=== PATIENT | female | born 1940 | race African-American/Black ===

== ENCOUNTER 2020-04-15 16:36 | Inpatient (IN) ==
[2020-04-17] MEDS ORDERED: Artificial Tears SOLN 15 ML BOTTLE OP PRN (17:10)
[2020-04-17] MEDS ORDERED: Bisacodyl 10 MG RECTAL SUPPOSITORY RC PRN (17:23)
[2020-04-17] MEDS ORDERED: MOM Conc 10 ML UD.LIQ PO PRN (17:24)
[2020-04-17] MEDS: *HR* OxyCODONE/APAP 5/325 TABLET PO SCH (20:39)
[2020-04-17] MEDS: Sennosides 8.6 MG TABLET PO SCH (20:40)
[2020-04-17] MEDS: SODIUM CHLORIDE OP SCH (21:11)
[2020-04-18] MEDS: *HR* OxyCODONE/APAP 5/325 TABLET PO SCH ×5 (03:03→16:23)
[2020-04-18 04:50] LABS: Basophils % 0.3 %; Eosinophils # 0.2 K/mcL (0.0-0.6); Eosinophils % 1.8 %; Hematocrit 23.9 % (35.3-44.9); Hemoglobin 7.7 g/dL (11.5-15.4); Immature Granulocytes % 1.1 % (0-4); Lymphocytes # 2.5 K/mcL (0.6-4.6); Lymphocytes % 25.7 %; Mean Corpuscular HGB Conc 32.2 g/dL (31.6-35.5); Mean Corpuscular Hemoglobin 29.6 pg (28.0-33.3); Mean Corpuscular Volume 91.9 fL (83.0-100.0); Monocytes # 0.8 K/mcL (0.0-1.3); Monocytes % 7.8 %; Neutrophils # 6.1 K/mcL (1.6-8.9); Nucleated Red Blood Cells 0.2 /100 WBC (0); Platelet Count 233 K/mcL (140-400); Red Cell Distribution Width 14.1 % (11.5-14.5); Segmented Neutrophils % 63.3 %; White Blood Count 9.6 K/mcL (4.3-11.1)
[2020-04-18] MEDS: *HR* Enoxaparin 40 MG/0.4 ML SYRINGE SQ SCH (04:54)
[2020-04-18 05:05] LABS: BUN/Creatinine Ratio 27 (6-26); Blood Urea Nitrogen 20 mg/dL (8-23); Calcium 8.7 mg/dL (8.6-10.3); Carbon Dioxide 26 mEq/L (23-29); Chloride 104 mEq/L (98-107); Glucose 98 mg/dL (70-105); Osmolality,Calculated 289 (280-300); Potassium 4.2 mEq/L (3.5-5.1); Sodium 138 mEq/L (136-145); eGFR For African Americans > 60 (> 60); eGFR For Non-African Americans > 60 (> 60)
[2020-04-18] MEDS: Vitamin B Complex/Vit C/Vit E 1 EACH TABLET PO SCH (08:09)
[2020-04-18] MEDS: Zinc Sulfate 220 MG CAPSULE PO SCH (08:10)
[2020-04-18] MEDS: Cholecalciferol (D-3) 1,000 UNIT (25MCG) TABLET PO SCH (08:10)
[2020-04-18] MEDS: Loratadine 10 MG TABLET PO SCH (08:10)
[2020-04-18] MEDS: Sennosides 8.6 MG TABLET PO SCH ×2 (08:10→21:06)
[2020-04-18] MEDS: Aspirin 81 MG TAB.CHEW PO SCH (08:10)
[2020-04-18] MEDS: SODIUM CHLORIDE OP SCH (08:12)
[2020-04-18] MEDS: Patient Taking Own Medication 1 EACH TP SCH (08:12)
[2020-04-18] MEDS: polyethylene glycoL 3350 17 GM POWD.PACK PO SCH (08:12)
[2020-04-18] MEDS: Ondansetron ODT 4 MG TAB.RAPDIS SL PRN ×2 (12:01→21:06)
[2020-04-18] MEDS: 0.9 % Sodium Chloride 1,000 ML IVC SCH (13:24)
[2020-04-18] MEDS: *HR* OxyCODONE/APAP 5/325 TABLET PO PRN (21:07)
[2020-04-19] MEDS: 0.9 % Sodium Chloride 1,000 ML IVC SCH ×2 (01:02→11:37)
[2020-04-19] MEDS: *HR* Enoxaparin 40 MG/0.4 ML SYRINGE SQ SCH (06:20)
[2020-04-19] MEDS: *HR* OxyCODONE/APAP 5/325 TABLET PO PRN ×2 (06:21→12:53)
[2020-04-19] MEDS: Ondansetron ODT 4 MG TAB.RAPDIS SL PRN ×2 (06:21→13:32)
[2020-04-19] MEDS: Sennosides 8.6 MG TABLET PO SCH ×2 (10:28→19:58)
[2020-04-19 11:09] LABS: Basophils # 0.1 K/mcL (0.0-0.2); Basophils % 0.5 %; Eosinophils # 0.3 K/mcL (0.0-0.6); Eosinophils % 3.1 %; Hematocrit 25.6 % (35.3-44.9); Hemoglobin 8.1 g/dL (11.5-15.4); Immature Granulocytes % 3.3 % (0-4); Lymphocytes # 4.3 K/mcL (0.6-4.6); Lymphocytes % 40.3 %; Mean Corpuscular HGB Conc 31.6 g/dL (31.6-35.5); Mean Corpuscular Hemoglobin 29.2 pg (28.0-33.3); Mean Corpuscular Volume 92.4 fL (83.0-100.0); Mean Platelet Volume 9.2 fL (9.4-12.4); Monocytes # 0.8 K/mcL (0.0-1.3); Monocytes % 7.6 %; Neutrophils # 4.8 K/mcL (1.6-8.9); Nucleated Red Blood Cells 0.3 /100 WBC (0); Platelet Count 295 K/mcL (140-400); Red Blood Count 2.77 M/mcL (3.82-4.97); Red Cell Distribution Width 13.9 % (11.5-14.5); Segmented Neutrophils % 45.2 %; White Blood Count 10.6 K/mcL (4.3-11.1)
[2020-04-19 11:25] LABS: BUN/Creatinine Ratio 20 (6-26); Blood Urea Nitrogen 13 mg/dL (8-23); Calcium 8.6 mg/dL (8.6-10.3); Carbon Dioxide 23 mEq/L (23-29); Chloride 105 mEq/L (98-107); Glucose 82 mg/dL (70-105); Osmolality,Calculated 285 (280-300); Potassium 4.1 mEq/L (3.5-5.1); Sodium 138 mEq/L (136-145); eGFR For African Americans > 60 (> 60); eGFR For Non-African Americans > 60 (> 60)
[2020-04-19] MEDS: Loratadine 10 MG TABLET PO SCH (11:34)
[2020-04-19] MEDS: Zinc Sulfate 220 MG CAPSULE PO SCH (11:35)
[2020-04-19] MEDS: Vitamin B Complex/Vit C/Vit E 1 EACH TABLET PO SCH (11:35)
[2020-04-19] MEDS: Cholecalciferol (D-3) 1,000 UNIT (25MCG) TABLET PO SCH (11:35)
[2020-04-19] MEDS: Aspirin 81 MG TAB.CHEW PO SCH (11:36)
[2020-04-19] MEDS: Patient Taking Own Medication 1 EACH TP SCH (11:36)
[2020-04-19] MEDS: polyethylene glycoL 3350 17 GM POWD.PACK PO SCH (11:36)
[2020-04-19] MEDS ORDERED: polyethylene glycoL 3350 17 GM POWD.PACK PO PRN (13:09)
[2020-04-20] MEDS: *HR* OxyCODONE/APAP 5/325 TABLET PO PRN ×2 (01:02→09:07)
[2020-04-20] MEDS: Ondansetron ODT 4 MG TAB.RAPDIS SL PRN ×3 (01:02→19:35)
[2020-04-20] MEDS: *HR* Enoxaparin 40 MG/0.4 ML SYRINGE SQ SCH (04:52)
[2020-04-20] MEDS: Sennosides 8.6 MG TABLET PO SCH ×2 (09:00→19:36)
[2020-04-20] MEDS: Vitamin B Complex/Vit C/Vit E 1 EACH TABLET PO SCH (09:00)
[2020-04-20] MEDS: Cholecalciferol (D-3) 1,000 UNIT (25MCG) TABLET PO SCH (09:00)
[2020-04-20] MEDS: Patient Taking Own Medication 1 EACH TP SCH (09:00)
[2020-04-20] MEDS: Loratadine 10 MG TABLET PO SCH (09:00)
[2020-04-20] MEDS: Zinc Sulfate 220 MG CAPSULE PO SCH (09:00)
[2020-04-20] MEDS: Aspirin 81 MG TAB.CHEW PO SCH (09:00)
[2020-04-20 15:46] LABS: Basophils % 0.2 %; Eosinophils # 0.2 K/mcL (0.0-0.6); Eosinophils % 2.7 %; Hematocrit 25.1 % (35.3-44.9); Hemoglobin 8.1 g/dL (11.5-15.4); Immature Granulocytes % 3.9 % (0-4); Lymphocytes # 3.3 K/mcL (0.6-4.6); Lymphocytes % 36.9 %; Mean Corpuscular HGB Conc 32.3 g/dL (31.6-35.5); Mean Corpuscular Hemoglobin 29.9 pg (28.0-33.3); Mean Corpuscular Volume 92.6 fL (83.0-100.0); Monocytes # 0.9 K/mcL (0.0-1.3); Monocytes % 9.6 %; Neutrophils # 4.2 K/mcL (1.6-8.9); Nucleated Red Blood Cells 0.8 /100 WBC (0); Platelet Count 309 K/mcL (140-400); Red Blood Count 2.71 M/mcL (3.82-4.97); Segmented Neutrophils % 46.7 %
[2020-04-20 16:00] LABS: BUN/Creatinine Ratio 23 (6-26); Blood Urea Nitrogen 19 mg/dL (8-23); Calcium 9.2 mg/dL (8.6-10.3); Carbon Dioxide 30 mEq/L (23-29); Chloride 103 mEq/L (98-107); Glucose 119 mg/dL (70-105); Magnesium 1.8 mg/dL (1.6-2.6); Osmolality,Calculated 291 (280-300); Potassium 4.2 mEq/L (3.5-5.1); Sodium 139 mEq/L (136-145); eGFR For African Americans > 60 (> 60); eGFR For Non-African Americans > 60 (> 60)
[2020-04-21] MEDS: *HR* Enoxaparin 40 MG/0.4 ML SYRINGE SQ SCH (05:31)
[2020-04-21] MEDS: Cholecalciferol (D-3) 1,000 UNIT (25MCG) TABLET PO SCH (09:29)
[2020-04-21] MEDS: Ondansetron ODT 4 MG TAB.RAPDIS SL PRN ×2 (09:29→17:07)
[2020-04-21] MEDS: Zinc Sulfate 220 MG CAPSULE PO SCH (09:29)
[2020-04-21] MEDS: Vitamin B Complex/Vit C/Vit E 1 EACH TABLET PO SCH (09:29)
[2020-04-21] MEDS: Loratadine 10 MG TABLET PO SCH (09:30)
[2020-04-21] MEDS: Aspirin 81 MG TAB.CHEW PO SCH (09:30)
[2020-04-21] MEDS: Patient Taking Own Medication 1 EACH TP SCH (09:30)
[2020-04-21] MEDS: Sennosides 8.6 MG TABLET PO SCH (09:30)
[2020-04-21 12:22] LABS: Basophils % 0.3 %; Eosinophils # 0.3 K/mcL (0.0-0.6); Eosinophils % 2.8 %; Hematocrit 27.9 % (35.3-44.9); Hemoglobin 8.9 g/dL (11.5-15.4); Immature Granulocytes % 2.9 % (0-4); Lymphocytes % 42.3 %; Mean Corpuscular HGB Conc 31.9 g/dL (31.6-35.5); Mean Corpuscular Hemoglobin 29.7 pg (28.0-33.3); Mean Platelet Volume 9.1 fL (9.4-12.4); Monocytes # 0.8 K/mcL (0.0-1.3); Monocytes % 8.1 %; Neutrophils # 4.1 K/mcL (1.6-8.9); Nucleated Red Blood Cells 0.3 /100 WBC (0); Platelet Count 365 K/mcL (140-400); Red Cell Distribution Width 14.4 % (11.5-14.5); Segmented Neutrophils % 43.6 %; White Blood Count 9.5 K/mcL (4.3-11.1)
[2020-04-21 12:36] LABS: BUN/Creatinine Ratio 18 (6-26); Blood Urea Nitrogen 14 mg/dL (8-23); Calcium 9.7 mg/dL (8.6-10.3); Carbon Dioxide 29 mEq/L (23-29); Chloride 99 mEq/L (98-107); Glucose 115 mg/dL (70-105); Osmolality,Calculated 285 (280-300); Potassium 4.1 mEq/L (3.5-5.1); Sodium 137 mEq/L (136-145); eGFR For African Americans > 60 (> 60); eGFR For Non-African Americans > 60 (> 60)
[2020-04-22] MEDS: *HR* Enoxaparin 40 MG/0.4 ML SYRINGE SQ SCH (05:48)
[2020-04-22] MEDS: Aspirin 81 MG TAB.CHEW PO SCH (08:17)
[2020-04-22] MEDS: Cholecalciferol (D-3) 1,000 UNIT (25MCG) TABLET PO SCH (08:17)
[2020-04-22] MEDS: Vitamin B Complex/Vit C/Vit E 1 EACH TABLET PO SCH (08:17)
[2020-04-22] MEDS: Loratadine 10 MG TABLET PO SCH (08:17)
[2020-04-22] MEDS: Zinc Sulfate 220 MG CAPSULE PO SCH (08:17)
[2020-04-22] MEDS: Patient Taking Own Medication 1 EACH TP SCH (08:18)
[2020-04-22] MEDS ORDERED: Menthol 9.1 MG LOZENGE PO PRN (14:35)
[2020-04-22] MEDS: Ondansetron ODT 4 MG TAB.RAPDIS SL PRN (20:30)
[2020-04-23] MEDS: *HR* Enoxaparin 40 MG/0.4 ML SYRINGE SQ SCH (05:13)
[2020-04-23] MEDS: Zinc Sulfate 220 MG CAPSULE PO SCH (09:19)
[2020-04-23] MEDS: Loratadine 10 MG TABLET PO SCH (09:19)
[2020-04-23] MEDS: Cholecalciferol (D-3) 1,000 UNIT (25MCG) TABLET PO SCH (09:19)
[2020-04-23] MEDS: Aspirin 81 MG TAB.CHEW PO SCH (09:19)
[2020-04-23] MEDS: Patient Taking Own Medication 1 EACH TP SCH (09:20)
[2020-04-23] MEDS: *HR* OxyCODONE/APAP 5/325 TABLET PO PRN ×2 (10:26→22:10)
[2020-04-24] MEDS: *HR* Enoxaparin 40 MG/0.4 ML SYRINGE SQ SCH (06:44)
[2020-04-24] MEDS: Patient Taking Own Medication 1 EACH TP SCH (08:27)
[2020-04-24] MEDS: Cholecalciferol (D-3) 1,000 UNIT (25MCG) TABLET PO SCH (08:27)
[2020-04-24] MEDS: Loratadine 10 MG TABLET PO SCH (08:27)
[2020-04-24] MEDS: Aspirin 81 MG TAB.CHEW PO SCH (08:27)
[2020-04-24] MEDS: Zinc Sulfate 220 MG CAPSULE PO SCH (08:30)
[2020-04-24] MEDS: *HR* OxyCODONE/APAP 5/325 TABLET PO PRN (22:04)
[2020-04-25 05:23] LABS: Basophils % 0.4 %; Eosinophils # 0.4 K/mcL (0.0-0.6); Eosinophils % 4.3 %; Hematocrit 28.6 % (35.3-44.9); Hemoglobin 8.8 g/dL (11.5-15.4); Immature Granulocytes % 1.3 % (0-4); Lymphocytes # 5.1 K/mcL (0.6-4.6); Lymphocytes % 49.3 %; Mean Corpuscular HGB Conc 30.8 g/dL (31.6-35.5); Mean Corpuscular Hemoglobin 29.2 pg (28.0-33.3); Mean Platelet Volume 8.8 fL (9.4-12.4); Monocytes # 0.9 K/mcL (0.0-1.3); Monocytes % 8.5 %; Neutrophils # 3.7 K/mcL (1.6-8.9); Platelet Count 416 K/mcL (140-400); Red Blood Count 3.01 M/mcL (3.82-4.97); Red Cell Distribution Width 14.6 % (11.5-14.5); Segmented Neutrophils % 36.2 %; White Blood Count 10.3 K/mcL (4.3-11.1)
[2020-04-25 05:38] LABS: BUN/Creatinine Ratio 20 (6-26); Blood Urea Nitrogen 16 mg/dL (8-23); Calcium 9.4 mg/dL (8.6-10.3); Carbon Dioxide 31 mEq/L (23-29); Chloride 101 mEq/L (98-107); Glucose 96 mg/dL (70-105); Osmolality,Calculated 289 (280-300); Potassium 4.3 mEq/L (3.5-5.1); Sodium 139 mEq/L (136-145); eGFR For African Americans > 60 (> 60); eGFR For Non-African Americans > 60 (> 60)
[2020-04-25] MEDS: *HR* Enoxaparin 40 MG/0.4 ML SYRINGE SQ SCH (06:47)
[2020-04-25] MEDS: Aspirin 81 MG TAB.CHEW PO SCH (08:26)
[2020-04-25] MEDS: Cholecalciferol (D-3) 1,000 UNIT (25MCG) TABLET PO SCH (08:27)
[2020-04-25] MEDS: Patient Taking Own Medication 1 EACH TP SCH (08:27)
[2020-04-25] MEDS: Zinc Sulfate 220 MG CAPSULE PO SCH (08:27)
[2020-04-25] MEDS: Loratadine 10 MG TABLET PO SCH (08:27)
[2020-04-25] MEDS ORDERED: tiZANidine 4 MG TABLET PO PRN (15:02)
[2020-04-26] MEDS: *HR* OxyCODONE/APAP 5/325 TABLET PO PRN (04:33)
[2020-04-26] MEDS: *HR* Enoxaparin 40 MG/0.4 ML SYRINGE SQ SCH (04:34)
[2020-04-26] MEDS: Loratadine 10 MG TABLET PO SCH (08:01)
[2020-04-26] MEDS: Aspirin 81 MG TAB.CHEW PO SCH (08:01)
[2020-04-26] MEDS: Cholecalciferol (D-3) 1,000 UNIT (25MCG) TABLET PO SCH (08:01)
[2020-04-26] MEDS: Zinc Sulfate 220 MG CAPSULE PO SCH (08:01)
[2020-04-26] MEDS: Patient Taking Own Medication 1 EACH TP SCH (08:01)
[2020-04-27] MEDS: *HR* Enoxaparin 40 MG/0.4 ML SYRINGE SQ SCH (05:50)
[2020-04-27 07:14] VITALS: BP 129/78
[2020-04-27] MEDS: Aspirin 81 MG TAB.CHEW PO SCH (08:07)
[2020-04-27] MEDS: Zinc Sulfate 220 MG CAPSULE PO SCH (08:07)
[2020-04-27] MEDS: Loratadine 10 MG TABLET PO SCH (08:07)
[2020-04-27] MEDS: Cholecalciferol (D-3) 1,000 UNIT (25MCG) TABLET PO SCH (08:07)
[2020-04-27] MEDS: Patient Taking Own Medication 1 EACH TP SCH (10:12)
== END 2020-04-27 12:40 | disposition home health service (06) | DRG 949 ==
LOC: INPGRE 04-17 16:25
PROVIDERS: ADMIT Family Medicine; ATTEND Family Medicine